=== PATIENT | male | born 1935 | race Caucasian/White ===

== ENCOUNTER 2017-12-23 13:34 | Emergency (ER) | payer OTHER ==
[~2017-12-23] VITALS: Ht 172.7 cm; Wt 63.1 kg
[~2017-12-23 13:34] MED LIST: ASPIR-LOW81 M1 PO; HYDROCHLOROTHIA25 MG PO; LIPITOR80 MG PO; ZETIA10 MG PO
[2017-12-23] MEDS ORDERED: LISINOPRIL10 MG PO (14:21)
[2017-12-23] MEDS ORDERED: FLEXERIL10 MG PO (16:17)
[2017-12-23 16:27] VITALS: BP 150/88
== END 2017-12-23 16:58 | disposition home or self-care (01) ==
LOC: EME 13:34
DX: M25.551 Pain in right hip (principal); R07.81 Pleurodynia; Z91.81 History of falling; I10 Essential (primary) hypertension; F41.9 Anxiety disorder, unspecified; I25.2 Old myocardial infarction; Z95.5 Presence of coronary angioplasty implant and graft; Z79.82 Long term (current) use of aspirin
CPT/HCPCS: 71046; 73521; 73552; 99281; 99284